=== PATIENT | female | born 1980 | race African-American/Black ===

== ENCOUNTER → 2019-03-28 | Outpatient (CLI) | payer SELFPAY ==
[~2019-03-28] MED LIST: FAMO20TA5 PO; ONDA-42 SL; ONDA8TAB9 PO
--- NOTE | 2019-03-28 14:00 | Diagnostic Imaging Report ---
INDICATION: Left wrist pain. FINDINGS: Three views of the left wrist show no fracture, dislocation or other acute abnormalities. IMPRESSION: Negative left wrist. Dictated by: Dictated on workstation # [id number]
== END ==
LOC: RAD FS 13:35
PROVIDERS: ATTEND Nurse Practitioner Family
DX: S69.92XA Unspecified injury of left wrist, hand and finger(s), initial encounter (principal)
CPT/HCPCS: 73110

== ENCOUNTER 2020-06-26 07:40 | Emergency (ER) | payer SELFPAY ==
[~2020-06-26] VITALS: Ht 167.7 cm; Wt 128.2 kg
[2020-06-26] MEDS ORDERED: NS IV 1000 ML 1,000 ML IV STA (08:05)
[2020-06-26] MEDS ORDERED: KETOROLAC 15 MG/ML VIAL ONE (08:10)
--- NOTE | 2020-06-26 08:11 | ED Abdominal Pain ---
General Chief Complaint: Abdominal/GI Problems Stated Complaint: ABD PAIN; RT FLANK PAIN; NAUSEA Source of Information: Patient, RN/MD Exam Limitations: No Limitations History of Present Illness Date Seen by Provider: Jun 26, 2020 Time Seen by Provider: 07:58 Initial Comments This patient is a 40-year-old female presents to the emergency department with complaint of right upper quadrant abdominal pain radiating to the back. Patient states it awakened her from sleep. Patient denies a history of the same. Patient is not related to food. Patient states she is passing gas this morning. Patient denies nausea. Denies cough or chest pain. We'll do medical evaluation treatment is needed Timing/Duration: 1 Hour Severity/Quality: Moderate Location: RUQ, Epigastric Radiation: Back, Flank Activities at Onset: None, Rest Modifying Factors: Worsens With Analgesics, Worsens With Antacids, Worsens With Breathing, Worsens With Coughing, Worsens With Defecating, Worsens With Eating, Worsens With Exercise, Worsens With Lying down, Worsens With Movement, Worsens With Palpation, Worsens With Resting, Worsens With Urinating, Worsens With Vomiting, Worsens With Other Allergies and Home Medications Allergies Coded Allergies: latex (Unverified Allergy, Unknown, 03/24/15) Uncoded Allergies: RASIN (Allergy, Unknown, 09/27/15) Home Medications No Active Prescriptions or Reported Meds Patient Home Medication List Home Medication List Reviewed: Yes Review of Systems Review of Systems Constitutional: No no symptoms reported, No see HPI, No chills, No diaphoresis, No dizziness, No fever, No malaise, No weakness, No weight gain, No weight loss, No other EENTM: No No Symptoms Reported, No See HPI, No Blurred Vision, No Double Vision, No Eye Pain, No Eye Tearing, No Ear Drainage, No Ear Pain, No Mouth Pain, No Mouth Swelling, No Nose Congestion, No Nose Pain, No Throat Pain, No Throat Swelling, No Other Respiratory: Denies No Symptoms Reported, Denies See HPI, Denies Cough, Denies Orthopnea, Denies Shortness of Air, Denies SOA With Exertion, Denies SOA at Rest, Denies Stridor, Denies Wheezing, Denies Other Cardiovascular: Denies No Symptoms Reported, Denies See HPI, Denies Chest Pain, Denies Edema, Denies Irregular Heart Rate, Denies Lightheadedness, Denies Palpitations, Denies Syncope, Denies Other Gastrointestinal: No Symptoms Reported; Denies See HPI, Denies Abdomen Distended; Abdominal Pain; Denies Blood Streaked Stools, Denies Constipated, Denies Diarrhea, Denies Difficulty Swallowing, Denies Nausea, Denies Poor Appetite, Denies Poor Fluid Intake, Denies Rectal Bleeding, Denies Vomiting, Denies Other Genitourinary: Denies No Symptoms Reported, Denies See HPI, Denies Burning, Denies Discharge, Denies Drainage, Denies Frequency, Denies Flank Pain, Denies Hematuria, Denies Incontinence, Denies Pain, Denies Urgency, Denies Other Musculoskeletal: No no symptoms reported, No see HPI, No back pain, No gout, No joint pain, No joint swelling, No muscle pain, No muscle stiffness, No muscle cramps, No muscle twitching, No muscle weakness, No neck pain, No other Skin: No no symptoms reported, No see HPI, No change in color, No change in hair/nails, No dryness, No hx of skin cancer, No lesions, No lumps, No pruritus, No rash, No other All Other Systems Reviewed Negative Unless Noted: Yes Past Vbmsreg-Vkblgf-Vnilmx Hx Patient Social History Type Used: Cigarettes Former Smoker, Quit: Jun 19, 2014 Recent Foreign Travel: No Contact w/Someone Who Travel: No Recent Hopitalizations: No Immunizations Up To Date Tetanus Booster (TDap): Unknown Past Medical History Asthma Reproductive Disorders: No Sexually Transmitted Disease: No HIV/AIDS: No Adverse Reaction/Blood Tranf: No Physical Exam Vital Signs Vital Signs - First Documented 06/26/20 07:44 Temp 35.8 Pulse 92 Resp 18 B/P (MAP) 145/94 (111) Pulse Ox 98 O2 Delivery Room Air Capillary Refill : Height/Weight/BMI Height: 5'5" Weight: 245lbs. oz. 111.990078ey; BMI Method: General Appearance: WD/WN, no apparent distress Respiratory: chest non-tender, lungs clear, normal breath sounds, no respiratory distress, no accessory muscle use Cardiovascular: normal peripheral pulses, regular rate, rhythm, no edema, no gallop, no JVD, no murmur Gastrointestinal: normal bowel sounds, soft, no organomegaly, no pulsatile mass, guarding, tenderness Extremities: normal range of motion, non-tender, normal inspection, no pedal edema, no calf tenderness, normal capillary refill, pelvis stable Back: normal inspection, no CVA tenderness, no vertebral tenderness Skin: normal color, warm/dry Progress/Results/Core Measures Results/Orders Lab Results Laboratory Tests Test 06/26/20 07:44 06/26/20 07:59 Range/Units Urine Color YELLOW Urine Clarity CLEAR Urine pH 6.0 5-9 Urine Specific [place] 1.025 H 1.016-1.022 Urine Protein NEGATIVE NEGATIVE Urine Glucose (UA) NEGATIVE NEGATIVE Urine Ketones NEGATIVE NEGATIVE Urine Nitrite NEGATIVE NEGATIVE Urine Bilirubin NEGATIVE NEGATIVE Urine Urobilinogen 0.2 < = 1.0 MG/DL Urine Leukocyte Esterase TRACE H NEGATIVE Urine RBC (Auto) TRACE H NEGATIVE Urine RBC 2-5 H /HPF Urine WBC 0-2 /HPF Urine Squamous Epithelial Cells 5-10 /HPF Urine Crystals NONE /LPF Urine Bacteria NEGATIVE /HPF Urine Casts NONE /LPF Urine Mucus NEGATIVE /LPF Urine Culture Indicated NO White Blood Count 6.8 4.3-11.0 10^3/uL Red Blood Count 4.72 4.35-5.85 10^6/uL Hemoglobin 11.3 L 11.5-16.0 G/DL Hematocrit 36 35-52 % Mean Corpuscular Volume 75 L 80-99 FL Mean Corpuscular Hemoglobin 24 L 25-34 PG Mean Corpuscular Hemoglobin Concent 32 32-36 G/DL Red Cell Distribution Width 15.4 H 10.0-14.5 % Platelet Count 350 130-400 10^3/uL Mean Platelet Volume 10.0 7.4-10.4 FL Neutrophils (%) (Auto) 57 42-75 % Lymphocytes (%) (Auto) 26 12-44 % Monocytes (%) (Auto) 7 0-12 % Eosinophils (%) (Auto) 9 0-10 % Basophils (%) (Auto) 1 0-10 % Neutrophils # (Auto) 3.9 1.8-7.8 X 10^3 Lymphocytes # (Auto) 1.8 1.0-4.0 X 10^3 Monocytes # (Auto) 0.5 0.0-1.0 X 10^3 Eosinophils # (Auto) 0.6 H 0.0-0.3 10^3/uL Basophils # (Auto) 0.1 0.0-0.1 10^3/uL Sodium Level 138 135-145 MMOL/L Potassium Level 4.1 3.6-5.0 MMOL/L Chloride Level 104 98-107 MMOL/L Carbon Dioxide Level 25 21-32 MMOL/L Anion Gap 9 5-14 MMOL/L Blood Urea Nitrogen 13 7-18 MG/DL Creatinine 0.84 0.60-1.30 MG/DL Estimat Glomerular Filtration Rate > 60 BUN/Creatinine Ratio 15 Glucose Level 109 H 70-105 MG/DL Calcium Level 9.2 8.5-10.1 MG/DL Corrected Calcium 9.2 8.5-10.1 MG/DL Total Bilirubin 0.2 0.1-1.0 MG/DL Aspartate Amino Transf (AST/SGOT) 16 5-34 U/L Alanine Aminotransferase (ALT/SGPT) 18 0-55 U/L Alkaline Phosphatase 89 40-136 U/L Total Protein 7.1 6.4-8.2 GM/DL Albumin 4.0 3.2-4.5 GM/DL Lipase 35 8-78 U/L My Orders Orders - ANGIE GALEANA MD Cbc With Automated Diff (06/26/20 08:03) Comprehensive Metabolic Panel (06/26/20 08:03) Urine Bedside (06/26/20 08:04) Ns Iv 1000 Ml (Sodium Chloride 0.9%) (06/26/20 08:05) Ondansetron Injection (Zofran Injectio (06/26/20 08:15) Urinalysis (06/26/20 08:05) Lipase (06/26/20 08:05) Acute Abd Series (06/26/20 08:05) Ketorolac Injection (Toradol Injection) (06/26/20 08:10) Ketorolac Injection (Toradol Injection) (06/26/20 08:15) Medications Given in ED Current Medications Medications Dose Ordered Sig/Abel Route Start Time Stop Time Status Last Admin Dose Admin Ketorolac Tromethamine 15 mg ONCE ONCE IVP 06/26/20 08:15 06/26/20 08:17 DC 06/26/20 08:18 15 MG Ondansetron HCl 4 mg ONCE ONCE IVP 06/26/20 08:15 06/26/20 08:16 DC 06/26/20 08:14 4 MG Vital Signs/I&O 06/26/20 07:44 Temp 35.8 Pulse 92 Resp 18 B/P (MAP) 145/94 (111) Pulse Ox 98 O2 Delivery Room Air Progress Progress Note : Time: 08:53 Progress Note Negative for acute findings. Patient's pain is relieved. Laboratory findings are normal. Patient states she had a little soft stool this morning. X-ray showed the patient be possibly constipated. We did discuss at length with patient possible gallbladder issues. Patient understands we do not have ultrasound available. Patient understands that she will need follow-up primary care physician and possibly have an ultrasound outpatient. Patient should take note of recurrent pain in the right upper quadrant related to food. Patient is to return to the emergency department if symptoms felt improved worsen. Patient be given a prescription for Bentyl for abdominal pain. Departure Impression Primary Impression: Right upper quadrant abdominal pain Additional Impression: Constipation Disposition: 01 HOME, SELF-CARE Condition: Stable Departure-Patient Inst. Decision time for Depature: 08:54 Referrals: THADDEUS SWANN MD Patient Instructions: Constipation, Adult (DC), Severe Abdominal Pain, Adult (DC) Add. Discharge Instructions: Patient understands that she will need follow-up primary care physician and possibly have an ultrasound outpatient. Patient should take note of recurrent pain in the right upper quadrant related to food. Patient is to return to the emergency department if symptoms felt improved worsen. Patient be given a prescription for Bentyl for abdominal pain. All discharge instructions reviewed with patient and/or family. Voiced understanding. Scripts Diclofenac Sodium (Diclofenac Sodium) 75 Mg Tablet. 75 MG PO BID for 10 Days, #20 TAB 0 Refills Prov: ANGIE GALEANA MD 06/26/20 Dicyclomine HCl (Dicyclomine HCl) 20 Mg Tablet 20 MG PO TID, #20 TAB 0 Refills Prov: ANGIE GALEANA MD 06/26/20 ANGIE GALEANA MD Jun 26, 2020 08:11
[2020-06-26] MEDS ORDERED: ONDANSETRON 4 MG/2 ML (SDV) Z0FRAN IVP ONE (08:15)
[2020-06-26] MEDS ORDERED: KETOROLAC 15 MG/ML VIAL IVP ONE (08:15)
[2020-06-26] MEDS ORDERED: KETOROLAC 60 MG/2 ML VIAL IV ONE (08:15)
[2020-06-26 08:32] LABS: BACTERIA,URINE NEGATIVE /HPF; BILIRUBIN,URINE NEGATIVE (NEGATIVE); CLARITY,URINE CLEAR; COLOR,URINE YELLOW; GLUCOSE, URINE (UA) NEGATIVE (NEGATIVE); KETONES,URINE NEGATIVE (NEGATIVE); LEUKOCYTE ESTERASE ,URINE TRACE (NEGATIVE); NITRITE,URINE NEGATIVE (NEGATIVE); PROTEIN,URINE NEGATIVE (NEGATIVE); WBC,URINE 0-2 /HPF
[2020-06-26 08:33] LABS: BASOPHILS % (AUTO) 1 % (0-10); EOSINOPHILS % (AUTO) 9 % (0-10); HEMATOCRIT 36 % (35-52); HEMOGLOBIN 11.3 G/DL (11.5-16.0); MEAN CORPUSCULAR HEMOGLOBIN 24 PG (25-34); MEAN CORPUSCULAR HGB CONC 32 G/DL (32-36); MEAN CORPUSCULAR VOLUME 75 FL (80-99); MONOCYTES % (AUTO) 7 % (0-12); NEUTROPHILS % (AUTO) 57 % (42-75); PLATELET COUNT 350 10^3/uL (130-400); RED CELL DISTRIBUTION WIDTH 15.4 % (10.0-14.5); WHITE BLOOD COUNT 6.8 10^3/uL (4.3-11.0)
[2020-06-26 08:34] LABS: BASOPHILS # (AUTO) 0.1 10^3/uL (0.0-0.1); EOSINOPHILS # (AUTO) 0.6 10^3/uL (0.0-0.3); LYMPHOCYTES # (AUTO) 1.8 X 10^3 (1.0-4.0); LYMPHOCYTES % (AUTO) 26 % (12-44); MONOCYTES # (AUTO) 0.5 X 10^3 (0.0-1.0); NEUTROPHILS # (AUTO) 3.9 X 10^3 (1.8-7.8)
[2020-06-26 08:42] LABS: SODIUM 138 MMOL/L (135-145)
[2020-06-26 08:43] LABS: ALANINE AMINOTRANSFERASE 18 U/L (0-55); ALKALINE PHOSPHATASE 89 U/L (40-136); BILIRUBIN,TOTAL 0.2 MG/DL (0.1-1.0); BUN/CREATININE RATIO 15; CALCIUM 9.2 MG/DL (8.5-10.1); CARBON DIOXIDE 25 MMOL/L (21-32); CHLORIDE 104 MMOL/L (98-107); CREATININE SERUM 0.84 MG/DL (0.60-1.30); GFR ESTIMATED > 60; GLUCOSE 109 MG/DL (70-105); LIPASE 35 U/L (8-78); POTASSIUM 4.1 MMOL/L (3.6-5.0); TOTAL PROTEIN 7.1 GM/DL (6.4-8.2)
[2020-06-26] MEDS ORDERED: DICY20TA10 PO (08:56)
[2020-06-26] MEDS ORDERED: DICL75TA2 PO (08:56)
[2020-06-26 09:04] VITALS: BP 123/87
--- NOTE | 2020-06-26 09:38 | Diagnostic Imaging Report ---
INDICATION: Upper abdominal pain with radiation to the back COMPARISON: None FINDINGS: Supine and upright views of the abdomen show a nondistended bowel gas pattern. No abnormal air fluid levels or free intraperitoneal air is seen. No abnormal extraosseous calcifications are seen. Bony and soft tissue structures are within normal limits. No organomegaly is identified. Accompanying upright chest shows normal heart size and pulmonary vascularity. The lungs are well aerated and clear. The mediastinum is normal in appearance. IMPRESSION: 1. No bowel obstruction or free air. 2. Normal chest. No pneumonia or pulmonary edema. Dictated by: Dictated on workstation # [id number]
== END 2020-06-26 09:04 | disposition home or self-care (01) ==
LOC: EDUNIT# 07:40 → ER FS 07:42
DX: K59.00 Constipation, unspecified (principal); Z91.040 Latex allergy status; Z88.8 Allergy status to other drugs, medicaments and biological substances; Z87.891 Personal history of nicotine dependence
CPT/HCPCS: 36415; 74022; 80053; 81000; 83690; 84703; 85025

== ENCOUNTER 2020-10-08 14:54 | Emergency (ER) | payer SELFPAY ==
[~2020-10-08 14:54] MED LIST changes: +DICL75TA2 PO; +DICY20TA10 PO
== END 2020-10-08 16:00 | disposition left against medical advice (07) ==
LOC: EDUNIT# 14:54 → ER 14:55
DX: N93.9 Abnormal uterine and vaginal bleeding, unspecified (principal)

== ENCOUNTER 2021-12-07 10:57 | Observation (INO) | payer MEDICAID, OTHER ==
[~2021-12-07] VITALS: Ht 165.1 cm; Wt 127.0 kg
[~2021-12-07 10:57] MED LIST changes: +DICY20TA PO; -DICY20TA10 PO
[2021-12-07 11:35] LABS: BILIRUBIN,URINE NEGATIVE (NEGATIVE); CLARITY,URINE TURBID; COLOR,URINE YELLOW; GLUCOSE, URINE (UA) NEGATIVE (NEGATIVE); KETONES,URINE NEGATIVE (NEGATIVE); LEUKOCYTE ESTERASE ,URINE 1+ (NEGATIVE); NITRITE,URINE NEGATIVE (NEGATIVE); PROTEIN,URINE NEGATIVE (NEGATIVE)
--- NOTE | 2021-12-07 11:40 | ED Abdominal Pain ---
General Chief Complaint: Abdominal/GI Problems Stated Complaint: SOB,N/V,COUGH,UMBILICAL PAIN Source of Information: Patient Exam Limitations: No Limitations History of Present Illness Date Seen by Provider: Dec 07, 2021 Time Seen by Provider: 11:27 Initial Comments This is a well-appearing 41-year-old female who presented to the ER with complaints of mid umbilical and right upper quadrant abdominal pain that started this morning. States that she has a history of this pain and was told in the past that it was in relation to her gallbladder. Notes that she had a vaginal delivery 1 month ago. She is G8, P7. Took one of her home oxycodone's and states that her pain is much improved. Also states that everyone in her house is currently COVID-positive and would like evaluated for COVID as well. Denies fever, chills, cough, shortness of breath, vomiting. Does have intermittent nausea with no emesis. Allergies and Home Medications Allergies Coded Allergies: latex (Unverified Allergy, Unknown, 03/24/15) Uncoded Allergies: RASIN (Allergy, Unknown, 09/27/15) Patient Home Medication List Home Medication List Reviewed: Yes Diclofenac Sodium (Diclofenac Sodium) 75 Mg Tablet.dr, 75 MG PO BID Prescribed by: ANGIE GALEANA on 06/26/20855 Dicyclomine HCl (Dicyclomine HCl) 20 Mg Tablet, 20 MG PO TID Prescribed by: ANGIE GALEANA on 06/26/2056 Review of Systems Review of Systems Constitutional: no symptoms reported EENTM: No Symptoms Reported Respiratory: No Symptoms Reported Cardiovascular: No Symptoms Reported Gastrointestinal: See HPI Genitourinary: No Symptoms Reported Musculoskeletal: no symptoms reported Skin: no symptoms reported Psychiatric/Neurological: No Symptoms Reported Endocrine: No Symptoms Reported Hematologic/Lymphatic: No Symptoms Reported Past Dtfwyat-Ubawrx-Acwiuy Hx Patient Social History Tobacco Use?: No Substance use?: No Alcohol Use?: No Pt feels they are or have been: No Immunizations Up To Date Tetanus Booster (TDap): Unknown Influenza Vaccine Up-to-Date: No; Not Current Seasonal Allergies Seasonal Allergies: No Past Medical History Surgery/Hospitalization HX: asthma Surgeries: No Respiratory: Yes Asthma Cardiac: No Neurological: Yes (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 oz. 111.942804fq; 45.00 BMI Method: General Appearance: WD/WN, no apparent distress HEENT: PERRL/EOMI, normal ENT inspection, pharynx normal Neck: full range of motion, normal inspection Respiratory: lungs clear, normal breath sounds, no respiratory distress, no accessory muscle use Cardiovascular: regular rate, rhythm, no edema, no gallop, no murmur Gastrointestinal: normal bowel sounds, soft, no pulsatile mass, rebound, other (+Mejia ) Extremities: normal range of motion, non-tender, normal inspection Back: normal inspection, no CVA tenderness Neurologic/Psychiatric: no motor/sensory deficits, alert, normal mood/affect, oriented x 3 Skin: normal color, warm/dry Progress/Results/Core Measures Results/Orders Lab Results Laboratory Tests Test 12/07/21 11:17 12/07/21 11:32 12/07/21 11:35 Range/Units Urine Color YELLOW Urine Clarity TURBID Urine pH 6.0 5-9 Urine Specific [place] 1.020 1.016-1.022 Urine Protein NEGATIVE NEGATIVE Urine Glucose (UA) NEGATIVE NEGATIVE Urine Ketones NEGATIVE NEGATIVE Urine Nitrite NEGATIVE NEGATIVE Urine Bilirubin NEGATIVE NEGATIVE Urine Urobilinogen 0.2 < = 1.0 MG/DL Urine Leukocyte Esterase 1+ H NEGATIVE Urine RBC (Auto) NEGATIVE NEGATIVE Urine RBC NONE /HPF Urine WBC 5-10 H /HPF Urine Squamous Epithelial Cells 25-50 H /HPF Urine Crystals NONE /LPF Urine Bacteria TRACE /HPF Urine Casts NONE /LPF Urine Mucus NEGATIVE /LPF Urine Culture Indicated YES White Blood Count 8.5 4.3-11.0 10^3/uL Red Blood Count 5.15 H 3.80-5.11 10^6/uL Hemoglobin 12.0 11.5-16.0 g/dL Hematocrit 39 35-52 % Mean Corpuscular Volume 76 L 80-99 fL Mean Corpuscular Hemoglobin 23 L 25-34 pg Mean Corpuscular Hemoglobin Concent 31 L 32-36 g/dL Red Cell Distribution Width 18.6 H 10.0-14.5 % Platelet Count 288 130-400 10^3/uL Mean Platelet Volume 9.9 9.0-12.2 fL Immature Granulocyte % (Auto) 0 % Neutrophils (%) (Auto) 76 H 42-75 % Lymphocytes (%) (Auto) 13 12-44 % Monocytes (%) (Auto) 7 0-12 % Eosinophils (%) (Auto) 3 0-10 % Basophils (%) (Auto) 1 0-10 % Neutrophils # (Auto) 6.5 1.8-7.8 10^3/uL Lymphocytes # (Auto) 1.1 1.0-4.0 10^3/uL Monocytes # (Auto) 0.6 0.0-1.0 10^3/uL Eosinophils # (Auto) 0.3 0.0-0.3 10^3/uL Basophils # (Auto) 0.0 0.0-0.1 10^3/uL Immature Granulocyte # (Auto) 0.0 0.0-0.1 10^3/uL Sodium Level 139 135-145 MMOL/L Potassium Level 4.3 3.6-5.0 MMOL/L Chloride Level 107 98-107 MMOL/L Carbon Dioxide Level 22 21-32 MMOL/L Anion Gap 10 5-14 MMOL/L Blood Urea Nitrogen 10 7-18 MG/DL Creatinine 0.74 0.60-1.30 MG/DL Estimat Glomerular Filtration Rate 105 BUN/Creatinine Ratio 14 Glucose Level 109 H 70-105 MG/DL Calcium Level 8.6 8.5-10.1 MG/DL Corrected Calcium 8.8 8.5-10.1 MG/DL Total Bilirubin 0.3 0.1-1.0 MG/DL Aspartate Amino Transf (AST/SGOT) 23 5-34 U/L Alanine Aminotransferase (ALT/SGPT) 39 0-55 U/L Alkaline Phosphatase 112 40-136 U/L Total Protein 7.0 6.4-8.2 GM/DL Albumin 3.8 3.2-4.5 GM/DL Influenza Type A (RT-PCR) Not Detected Not Detecte Influenza Type B (RT-PCR) Not Detected Not Detecte SARS-CoV-2 RNA (RT-PCR) Detected H Not Detecte My Orders Orders - MILLY FU CEO NA Ua Culture If Indicated (12/07/21 11:12) Urine Bedside (12/07/21 11:12) Cbc With Automated Diff (12/07/21 11:37) Comprehensive Metabolic Panel (12/07/21 11:37) Ct Abdomen/Pelvis W (12/07/21 11:37) Covid 19 Inhouse Test (12/07/21 11:37) Influenza A And B By Pcr (12/07/21 11:37) Iohexol Injection (Omnipaque 350 Mg/Ml 1 (12/07/21 11:45) Received Contrast (Hold Metformin- Contr (12/07/21 11:45) Ns (Ivpb) (Sodium Chloride 0.9% Ivpb Bag (12/07/21 11:45) Urine Culture (12/07/21 11:17) Medications Given in ED Current Medications Medications Dose Ordered Sig/Abel Route Start Time Stop Time Status Last Admin Dose Admin Iohexol 100 ml ONCE ONCE IV 12/07/21 11:45 12/07/21 11:46 DC 12/07/21 13:08 100 ML Sodium Chloride 100 ml ONCE ONCE IV 12/07/21 11:45 12/07/21 11:46 DC 12/07/21 13:08 80 ML Vital Signs/I&O 12/07/21 11:11 Temp 36.1 Pulse 87 Resp 20 B/P (MAP) 137/91 (106) Pulse Ox 97 O2 Delivery Room Air Diagnostic Imaging Diagonstic Imaging: CT Plain Films/CT/US/NM/MRI: abdomen Comments [facility], [place] NAME: TASHI BROWN [facility] REC#: [id number] PT STATUS: REG ER : 1980 PHYSICIAN: MILLY FU CEO NA ADMIT DATE: 12/07/21/ER Signed Date of Exam:12/07/21 CT ABDOMEN/PELVIS W PROCEDURE: CT abdomen and pelvis with contrast. TECHNIQUE: Multiple contiguous axial images were obtained through the abdomen and pelvis after administration of intravenous contrast. Auto Exposure Controls were utilized during the CT exam to meet ALARA standards for radiation dose reduction. All CT scans use one or more of the following dose optimizing techniques: Automated exposure control, MA and/or KvP adjustment based on patient size and exam type or iterative reconstruction. INDICATION: Abdominal pain with nausea and emesis. COMPARISON: 09/27/2015. FINDINGS: There is mild low density throughout the liver. Gallbladder is distended with an approximately 1.8 cm calculus in the gallbladder neck. No gallbladder wall thickening or pericholecystic inflammation is identified. No pancreatic, adrenal gland, or splenic lesion is seen. Kidneys are unremarkable in appearance. There is no free fluid in the abdomen or pelvis. The appendix demonstrates mild enlargement with surrounding edema and inflammation. No organized fluid collection is seen to indicate abscess. There is a trace amount of pelvic free fluid. Unopacified bladder is unremarkable. IMPRESSION: Findings are compatible with acute appendicitis without periappendiceal abscess or pneumoperitoneum. Note is also made of cholecystolithiasis without secondary sign of acute cholecystitis or biliary tract obstruction. Dictated by: Dictated on workstation # [id number] Dict: 12/07/21 1313 Trans: 12/07/21 1347 [id number] Interpreted by: DEMARIO ANDERSON MD Electronically signed by: DEMARIO ANDERSON MD 12/07/21 1347 Reviewed: Reviewed by Me Departure Communication (Admissions) Time/Spoke to Admitting Phy: 13:[address] Guzman, will admit. Discussed plan of care with patient and she is agreeable with plan at this time. Impression Primary Impression: Acute appendicitis Additional Impression: COVID-19 Disposition: 09 ADMITTED INPATIENT Condition: Improved Admissions Decision to Admit Reason: Admit from ER (General) Decision to Admit/Date: Dec 07, 2021 Time/Decision to Admit Time: 13:29 Departure-Patient Inst. Referrals: NO,LOCAL PHYSICIAN (PCP/Family) Primary Care Physician MILLY FU CEO NA Dec 07, 2021 11:40
[2021-12-07 11:45] LABS: BACTERIA,URINE TRACE /HPF; SQUAMOUS EPITHELIAL CELL,UR 25-50 /HPF
[2021-12-07] MEDS ORDERED: HOLD METFORMIN - RECEIVED CONTRAST 20 ML VIAL IV SCH (11:45)
[2021-12-07] MEDS ORDERED: IOHEXOL 350 MG/ML 100 ML (OMNIPAQUE 350) VIAL IV ONE (11:45)
[2021-12-07] MEDS ORDERED: NS 100 ML (IVPB) BAG IV ONE (11:45)
[2021-12-07 11:47] LABS: BASOPHILS % (AUTO) 1 % (0-10); EOSINOPHILS # (AUTO) 0.3 10^3/uL (0.0-0.3); EOSINOPHILS % (AUTO) 3 % (0-10); HEMATOCRIT 39 % (35-52); LYMPHOCYTES # (AUTO) 1.1 10^3/uL (1.0-4.0); LYMPHOCYTES % (AUTO) 13 % (12-44); MEAN CORPUSCULAR HEMOGLOBIN 23 pg (25-34); MEAN CORPUSCULAR HGB CONC 31 g/dL (32-36); MEAN CORPUSCULAR VOLUME 76 fL (80-99); MEAN PLATELET VOLUME 9.9 fL (9.0-12.2); MONOCYTES # (AUTO) 0.6 10^3/uL (0.0-1.0); MONOCYTES % (AUTO) 7 % (0-12); NEUTROPHILS # (AUTO) 6.5 10^3/uL (1.8-7.8); NEUTROPHILS % (AUTO) 76 % (42-75); PLATELET COUNT 288 10^3/uL (130-400); WHITE BLOOD COUNT 8.5 10^3/uL (4.3-11.0)
[2021-12-07 11:48] LABS: ALBUMIN 3.8 GM/DL (3.2-4.5); POTASSIUM 4.3 MMOL/L (3.6-5.0)
[2021-12-07 11:49] LABS: CALCIUM 8.6 MG/DL (8.5-10.1)
[2021-12-07 11:52] LABS: BILIRUBIN,TOTAL 0.3 MG/DL (0.1-1.0)
[2021-12-07 11:54] LABS: CREATININE SERUM 0.74 MG/DL (0.60-1.30)
--- NOTE | 2021-12-07 13:23 | Diagnostic Imaging Report ---
PROCEDURE: CT abdomen and pelvis with contrast. TECHNIQUE: Multiple contiguous axial images were obtained through the abdomen and pelvis after administration of intravenous contrast. Auto Exposure Controls were utilized during the CT exam to meet ALARA standards for radiation dose reduction. All CT scans use one or more of the following dose optimizing techniques: Automated exposure control, MA and/or KvP adjustment based on patient size and exam type or iterative reconstruction. INDICATION: Abdominal pain with nausea and emesis. COMPARISON: 09/27/2015. FINDINGS: There is mild low density throughout the liver. Gallbladder is distended with an approximately 1.8 cm calculus in the gallbladder neck. No gallbladder wall thickening or pericholecystic inflammation is identified. No pancreatic, adrenal gland, or splenic lesion is seen. Kidneys are unremarkable in appearance. There is no free fluid in the abdomen or pelvis. The appendix demonstrates mild enlargement with surrounding edema and inflammation. No organized fluid collection is seen to indicate abscess. There is a trace amount of pelvic free fluid. Unopacified bladder is unremarkable. IMPRESSION: Findings are compatible with acute appendicitis without periappendiceal abscess or pneumoperitoneum. Note is also made of cholecystolithiasis without secondary sign of acute cholecystitis or biliary tract obstruction. Dictated by: Dictated on workstation # [id number]
[2021-12-07 14:45] VITALS: BP 137/71
[2021-12-07] MEDS ORDERED: PROCHLORPERAZINE 10 MG/2ML INJ (COMPAZINE) IV PRN (15:00)
[2021-12-07] MEDS ORDERED: ONDANSETRON 4 MG/2 ML (SDV) Z0FRAN IV PRN (15:00)
[2021-12-07] MEDS ORDERED: fentaNYL INJ 100 MCG/2 ML AMP IV PRN (15:00)
[2021-12-07] MEDS: oxyCODONE/APAP 5/325MG (PERCOCET 5) TABLET PO PRN (15:26)
[2021-12-07] MEDS: LACTATED RINGERS 1,000 ML IV SCH (15:27)
[2021-12-07 15:31] VITALS: BP 134/90
[2021-12-07] MEDS: CIPROFLOXACIN 400 MG/D5W 200 ML (PRE-MIX) IV SCH (15:31)
[2021-12-07] MEDS ORDERED: RT-ALBUTEROL HFA 8.5 GM INHALER IH PRN (15:45)
--- NOTE | 2021-12-07 16:11 | HISTORY AND PHYSICAL ---
DATE OF SERVICE: HISTORY OF PRESENT ILLNESS: The patient is a 41-year-old female, who is a G8, P7, who recently underwent vaginal delivery approximately one month ago. She presented to the Emergency Department with mid umbilical pain; however, this did start to radiate towards the right lower abdominal quadrant this morning. She also states that she has had some intermittent episodes of pain in the right upper abdominal quadrant as well. She does not report any nausea nor vomiting. She also does not report any fever, no chills. A CT scan was performed, which did show gallstones; however, no gallbladder wall thickening. There was also dilatation of the appendix with no periappendiceal phlegmon, inflammation or abscess consistent with an uncomplicated appendicitis. She also stated that people in her house were positive for Covid and she underwent a test upon presentation, and was found to be positive as well. PAST MEDICAL HISTORY: Seizure disorder as a child, migraine headaches, and asthma. PAST SURGICAL HISTORY: None known. ALLERGIES: LATEX. MEDICATIONS: Diclofenac 75 mg b.i.d., dicyclomine 20 mg t.i.d., and hydrocodone p.r.n. SOCIAL HISTORY: Negative smoke and negative alcohol. FAMILY HISTORY: Noncontributory. REVIEW OF SYSTEMS: A well-nourished female, currently in no acute distress. She is not experiencing any shortness of breath or difficulty in breathing. No chest pain, palpitations, diaphoresis. Pain in the right lower abdominal quadrant, which has been persistent over the past several hours; however, she also has intermittent pain in the right upper abdominal quadrant. No nausea or vomiting, no fever or chills, and no recent inadvertent weight loss. All other review of systems negative. PHYSICAL EXAMINATION: VITAL SIGNS: Temperature is 36.1, blood pressure 137/91, pulse 87, respirations 20, and pulse ox 97% on room air. CHEST: Clear. Good breath sounds bilaterally. HEART: Regular and no murmurs. EXTREMITIES: No lower extremity edema and negative Homans sign. HEENT: No scleral icterus. NECK: No cervical lymphadenopathy. ABDOMEN: Soft and nondistended. There is pain in the right upper abdominal quadrant; however, there are no peritoneal signs. There are no hernias. SKIN: Warm and dry. LABORATORY DATA: WBC 8.5, hemoglobin 12.0, hematocrit 39, platelets 288, BUN 10, and creatinine 0.74. Liver function enzymes are normal. Urinalysis positive for leukocyte esterase and trace bacteria. ASSESSMENT AND PLAN: A 41-year-old female with uncomplicated acute appendicitis as well as intermittent symptomatic chronic cholecystitis. She was found to be COVID positive and due to this, there are increased risks involving general endotracheal intubation as well as surgery. The management for noncomplicated appendicitis has changed dramatically in the past several years and may be treated medically with IV antibiotics and bowel rest. That is what we will recommend for her and continue with IV antibiotics, pain control, start clear liquid diet. When she becomes less symptomatic with less pain, we will advance her diet. We will also send her home with oral antibiotics as well. Once she is feeling better and over her covid recommendations, we will then give her the opportunity to proceed with an interval laparoscopic appendectomy as well as a laparoscopic cholecystectomy if she wishes to do so. Job ID: [id number] DocumentID: [id number] Dictated Date: 12/07/2021 15:56:11 Sander Portable Machine Date: 12/07/2021 16:10:05 Dictated By: JOSE CARLOS ESTES MD MTDD
[2021-12-07 20:14] VITALS: BP 142/83
[2021-12-08 00:05] VITALS: BP 137/76
[2021-12-08] MEDS: oxyCODONE/APAP 5/325MG (PERCOCET 5) TABLET PO PRN (00:24)
[2021-12-08] MEDS: CIPROFLOXACIN 400 MG/D5W 200 ML (PRE-MIX) IV SCH (01:57)
[2021-12-08] MEDS: LACTATED RINGERS 1,000 ML IV SCH ×2 (01:57→11:26)
[2021-12-08 03:55] VITALS: BP 157/72
[2021-12-08 06:43] LABS: BASOPHILS % (AUTO) 1 % (0-10); EOSINOPHILS # (AUTO) 0.3 10^3/uL (0.0-0.3); EOSINOPHILS % (AUTO) 6 % (0-10); HEMATOCRIT 37 % (35-52); HEMOGLOBIN 11.4 g/dL (11.5-16.0); LYMPHOCYTES # (AUTO) 1.3 10^3/uL (1.0-4.0); LYMPHOCYTES % (AUTO) 25 % (12-44); MEAN CORPUSCULAR HEMOGLOBIN 23 pg (25-34); MEAN CORPUSCULAR HGB CONC 31 g/dL (32-36); MEAN CORPUSCULAR VOLUME 75 fL (80-99); MEAN PLATELET VOLUME 10.4 fL (9.0-12.2); MONOCYTES # (AUTO) 0.4 10^3/uL (0.0-1.0); MONOCYTES % (AUTO) 8 % (0-12); NEUTROPHILS # (AUTO) 3.1 10^3/uL (1.8-7.8); NEUTROPHILS % (AUTO) 60 % (42-75); PLATELET COUNT 271 10^3/uL (130-400); WHITE BLOOD COUNT 5.2 10^3/uL (4.3-11.0)
[2021-12-08 06:56] LABS: POTASSIUM 3.7 MMOL/L (3.6-5.0)
[2021-12-08 06:57] LABS: CALCIUM 8.4 MG/DL (8.5-10.1)
[2021-12-08 07:01] LABS: CREATININE SERUM 0.68 MG/DL (0.60-1.30)
[2021-12-08 08:00] VITALS: BP 156/83
--- NOTE | 2021-12-08 09:08 | Progress Note ---
Subjective Date Seen by a Provider: Dec 08, 2021 Time Seen by a Provider: 08:40 Subjective/Events-last exam Patient seen with Dr. Guzman. Patient reports doing ok. Does reports some SOB and RLQ abdominal pain. Denies any other issues. Objective Exam Vital Signs Date Time Temp Pulse Resp B/P (MAP) Pulse Ox O2 Delivery O2 Flow Rate FiO2 12/08/21 08:00 35.9 73 20 156/83 (107) 96 Room Air 12/08/21 08:00 98 Room Air 12/08/21 03:55 36.1 75 19 157/72 (100) 98 Room Air 12/08/21 00:05 36.8 84 18 137/76 (96) 96 Room Air 12/07/21 20:14 36.6 94 18 142/83 (102) 99 Room Air 12/07/21 20:06 Room Air 12/07/21 15:31 36.1 82 99 21 12/07/21 14:45 36.7 84 20 137/71 (93) Room Air 12/07/21 14:45 36.1 82 18 134/90 99 Room Air 12/07/21 11:11 36.1 87 20 137/91 (106) 97 Room Air I & O 12/08/21 07:00 Intake Total 770 ml Balance 770 ml Capillary Refill : General Appearance: No Apparent Distress, WD/WN, Obese Neck: Normal Inspection, Supple Respiratory: No Accessory Muscle Use, No Respiratory Distress Cardiovascular: Regular Rate, Rhythm, No Edema Gastrointestinal: normal bowel sounds, soft, tenderness (RLQ) Extremity: Normal Inspection, Normal Range of Motion Neurologic/Psychiatric: Alert, Oriented x3 Skin: Normal Color, Warm/Dry Results Lab Laboratory Tests 12/07/21 11:17: Urine Color YELLOW, Urine Clarity TURBID, Urine pH 6.0, Urine Specific [place] 1.020, Urine Protein NEGATIVE, Urine Glucose (UA) NEGATIVE, Urine Ketones NEGATIVE, Urine Nitrite NEGATIVE, Urine Bilirubin NEGATIVE, Urine Urobilinogen 0.2, Urine Leukocyte Esterase 1+H, Urine RBC (Auto) NEGATIVE, Urine RBC NONE, Urine WBC 5-10H, Urine Squamous Epithelial Cells 25-50H, Urine Crystals NONE, Urine Bacteria TRACE, Urine Casts NONE, Urine Mucus NEGATIVE, Urine Culture Indicated YES 12/07/21 11:32: White Blood Count 8.5, Red Blood Count 5.15H, Hemoglobin 12.0, Hematocrit 39, Mean Corpuscular Volume 76L, Mean Corpuscular Hemoglobin 23L, Mean Corpuscular Hemoglobin Concent 31L, Red Cell Distribution Width 18.6H, Platelet Count 288, Mean Platelet Volume 9.9, Immature Granulocyte % (Auto) 0, Neutrophils (%) (Auto) 76H, Lymphocytes (%) (Auto) 13, Monocytes (%) (Auto) 7, Eosinophils (%) (Auto) 3, Basophils (%) (Auto) 1, Neutrophils # (Auto) 6.5, Lymphocytes # (Auto) 1.1, Monocytes # (Auto) 0.6, Eosinophils # (Auto) 0.3, Basophils # (Auto) 0.0, Immature Granulocyte # (Auto) 0.0, Sodium Level 139, Potassium Level 4.3, Chloride Level 107, Carbon Dioxide Level 22, Anion Gap 10, Blood Urea Nitrogen 10, Creatinine 0.74, Estimat Glomerular Filtration Rate 105, BUN/Creatinine Ratio 14, Glucose Level 109H, Calcium Level 8.6, Corrected Calcium 8.8, Total Bilirubin 0.3, Aspartate Amino Transf (AST/SGOT) 23, Alanine Aminotransferase (ALT/SGPT) 39, Alkaline Phosphatase 112, Total Protein 7.0, Albumin 3.8 12/07/21 11:35: Influenza Type A (RT-PCR) Not Detected, Influenza Type B (RT-PCR) Not Detected, SARS-CoV-2 RNA (RT-PCR) DetectedH 12/08/21 05:50: White Blood Count 5.2, Red Blood Count 4.94, Hemoglobin 11.4L, Hematocrit 37, Mean Corpuscular Volume 75L, Mean Corpuscular Hemoglobin 23L, Mean Corpuscular Hemoglobin Concent 31L, Red Cell Distribution Width 18.6H, Platelet Count 271, Mean Platelet Volume 10.4, Immature Granulocyte % (Auto) 0, Neutrophils (%) (Auto) 60, Lymphocytes (%) (Auto) 25, Monocytes (%) (Auto) 8, Eosinophils (%) (Auto) 6, Basophils (%) (Auto) 1, Neutrophils # (Auto) 3.1, Lymphocytes # (Auto) 1.3, Monocytes # (Auto) 0.4, Eosinophils # (Auto) 0.3, Basophils # (Auto) 0.0, Immature Granulocyte # (Auto) 0.0, Sodium Level 139, Potassium Level 3.7, Chloride Level 106, Carbon Dioxide Level 24, Anion Gap 9, Blood Urea Nitrogen 6L , Creatinine 0.68, Estimat Glomerular Filtration Rate 114, BUN/Creatinine Ratio 9, Glucose Level 102, Calcium Level 8.4L Assessment/Plan Assessment/Plan Assess & Plan/Chief Complaint A 41-year-old female with uncomplicated acute appendicitis as well as intermittent symptomatic chronic cholecystitis, COVID positive VSS WBC 5.2 Tolerating clear liquid diet, will advance to low fat It was discussed with patient about the risks of surgery and potential risks of being COVID positive and under going general anesthesia We will proceed with medical management with antibiotic and pain medication and will DC home once she is less symptomatic and have her follow up to schedule her surgery as an outpatient. She verbalized understanding. DARRYN LINK APRN Dec 08, 2021 09:08
[2021-12-08] MEDS ORDERED: ACHD5005 PO (09:15)
[2021-12-08] MEDS ORDERED: METR-145 PO (09:15)
[2021-12-08] MEDS ORDERED: CIPR500T5 PO (09:15)
--- NOTE | 2021-12-08 09:16 | Discharge Inst-Surgical ---
D/C Lap Instructions-KIDO Reconcile Patient Problems Problems Reviewed?: Yes New, Converted, or Re-Newed RX: RX on Chart Follow Up Appt in 2 weeks Call our office at [phone] Activity as tolerated No driving while on pain medications Incentive Spirometry use every 2 hours while awake Low fat diet Symptoms to Report: Fever over 101 degree F, Nausea/Vomiting Bathing instructions: May shower If any problems/questions: Contact your physician or go to Emergency Room DARRYN LINK APRN Dec 08, 2021 09:16
[2021-12-08 11:14] VITALS: BP 133/67
[2021-12-08 11:15] VITALS: BP 133/67
== END 2021-12-08 11:50 | disposition home or self-care (01) ==
LOC: EDUNIT# 10:57 → ER 11:00 → 4TH 13:52
PROVIDERS: ADMIT Surgery; ATTEND Surgery
DX: K35.80 Unspecified acute appendicitis (principal); K81.1 Chronic cholecystitis; U07.1 COVID-19; G43.909 Migraine, unspecified, not intractable, without status migrainosus; J45.909 Unspecified asthma, uncomplicated; Z79.891 Long term (current) use of opiate analgesic; Z79.899 Other long term (current) drug therapy
CPT/HCPCS: 36415; 74177; 80048; 80053; 81000; 84703; 85025; 87088; 87636; 94760; G0378

== ENCOUNTER 2023-05-23 05:38 | Emergency (ER) | payer MEDICAID ==
[~2023-05-23] VITALS: Ht 165.1 cm; Wt 149.7 kg
[~2023-05-23 05:38] MED LIST changes: +ACHD5005 PO; +CIPR500T5 PO; +METR-145 PO
--- NOTE | 2023-05-23 06:00 | ED Abdominal Pain ---
General Chief Complaint: Abdominal/GI Problems Stated Complaint: VOMITING,DIARRHEA,SHARP PX IN STOMACH Source of Information: Patient Exam Limitations: No Limitations History of Present Illness Date Seen by Provider: May 23, 2023 Time Seen by Provider: 06:00 Initial Comments Patient is a 43-year-old female who presents to the emergency room by private vehicle chief complaint upper abdominal pain, nausea vomiting diarrhea onset at 10 PM last night. Patient states that she felt nauseated off and on all day yesterday. She was able to eat a little watermelon and Hebrew fries. Last oral intake was a couple of sips of water about 2 hours ago. She has had no prior abdominal surgeries. Denies any sick contacts. Works as a FINANCE VICE PRESIDENT. Denies dysuria urgency or frequency. No blood in her stool but she does endorse blood in her vomit. She has never had any endoscopy. She is a non-smoker. She does have a history of asthma. 7 prior pregnancies currently on her menstrual cycle, day 4. Denies fevers or chills. She does feel a little lightheaded when she gets up and moves around and this also worsens her pain. Her pain is improved by lying still. She has not taken anything for the pain or nausea. Timing/Duration: 4-6 Hours Severity/Quality: Moderate, Sharp Location: RUQ, LUQ Radiation: No Radiation Activities at Onset: Other (work) Associated Symptoms: Nausea/Vomiting, Weakness, Other (diarrhea) Allergies and Home Medications Allergies Coded Allergies: latex (Unverified Allergy, Unknown, 12/07/21) Uncoded Allergies: RASIN (Allergy, Unknown, 09/27/15) Patient Home Medication List Home Medication List Reviewed: Yes Ciprofloxacin HCl (Ciprofloxacin HCl) 500 Mg Tablet, 500 MG PO BID Prescribed by: DARRYN LIKN on 12/08/21 0915 Diclofenac Sodium (Diclofenac Sodium) 75 Mg Tablet.dr, 75 MG PO BID Prescribed by: ANGIE GALEANA on 06/26/20 0856 Dicyclomine HCl (Dicyclomine HCl) 20 Mg Tablet, 20 MG PO TID Prescribed by: ANGIE GALEANA on 06/26/20 0856 Hydrocodone/Acetaminophen (Hydrocodone-Acetamin 5-325 mg) 1 Each Tablet, 1 TAB PO Q4H PRN for PAIN-MODERATE (5-7) Prescribed by: DARRYN LINK on 12/08/21914 Metronidazole (Metronidazole) 500 Mg Tablet, 500 MG PO BID Prescribed by: DARRYN LIKN on 12/08/21914 Ondansetron (Ondansetron Odt) 4 Mg Tab.rapdis, 4 MG SL Q8H PRN for NAUSEA/VOMITING Prescribed by: MEEK EMERSON on 05/23/23 0721 Review of Systems Review of Systems Constitutional: see HPI, malaise EENTM: No Symptoms Reported Respiratory: No Symptoms Reported Cardiovascular: No Symptoms Reported Gastrointestinal: Abdominal Pain, Diarrhea, Nausea, Vomiting, Other (hematemesis) Genitourinary: No Symptoms Reported Musculoskeletal: no symptoms reported Skin: no symptoms reported Past Mvwnciz-Bardxg-Bkpavq Hx Patient Social History Tobacco Use?: No Substance use?: No Alcohol Use?: No Immunizations Up To Date Tetanus Booster (TDap): Unknown Influenza Vaccine Up-to-Date: No; Not Current Seasonal Allergies Seasonal Allergies: No Past Medical History Surgery/Hospitalization HX: asthma Surgeries: No Respiratory: Yes Asthma Cardiac: No Neurological: Yes (SEIZURES WITH FIRST KID, HAS PASSED OUT WITH HEADACHES/MIGRAINES) Reproductive Disorders: No Sexually Transmitted Disease: No HIV/AIDS: No Genitourinary: No Gastrointestinal: No Musculoskeletal: No Endocrine: No HEENT: No 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 oz. 111.488998me; 46.59 BMI Method: General Appearance: WD/WN, no apparent distress, obese HEENT: PERRL/EOMI Respiratory: lungs clear, normal breath sounds, no respiratory distress, no accessory muscle use Cardiovascular: regular rate, rhythm Gastrointestinal: soft, tenderness (mild tenderness RUQ, epidastrum and LUQ; no rebound or involuntary guarding; hypoactive BS) Extremities: normal range of motion, normal inspection Neurologic/Psychiatric: alert, normal mood/affect, oriented x 3, other (flat affect) Skin: normal color, warm/dry Progress/Results/Core Measures Results/Orders Lab Results Laboratory Tests Test 05/23/23 06:16 Range/Units White Blood Count 6.7 4.3-11.0 10^3/uL Red Blood Count 5.48 H 3.80-5.11 10^6/uL Hemoglobin 14.2 11.5-16.0 g/dL Hematocrit 44 35-52 % Mean Corpuscular Volume 80 80-99 fL Mean Corpuscular Hemoglobin 26 25-34 pg Mean Corpuscular Hemoglobin Concent 32 32-36 g/dL Red Cell Distribution Width 15.1 H 10.0-14.5 % Platelet Count 327 130-400 10^3/uL Mean Platelet Volume 9.8 9.0-12.2 fL Immature Granulocyte % (Auto) 0 % Neutrophils (%) (Auto) 72 42-75 % Lymphocytes (%) (Auto) 16 12-44 % Monocytes (%) (Auto) 7 0-12 % Eosinophils (%) (Auto) 5 0-10 % Basophils (%) (Auto) 0 0-10 % Neutrophils # (Auto) 4.8 1.8-7.8 10^3/uL Lymphocytes # (Auto) 1.1 1.0-4.0 10^3/uL Monocytes # (Auto) 0.4 0.0-1.0 10^3/uL Eosinophils # (Auto) 0.4 H 0.0-0.3 10^3/uL Basophils # (Auto) 0.0 0.0-0.1 10^3/uL Immature Granulocyte # (Auto) 0.0 0.0-0.1 10^3/uL Sodium Level 138 135-145 MMOL/L Potassium Level 4.2 3.6-5.0 MMOL/L Chloride Level 107 98-107 MMOL/L Carbon Dioxide Level 21 21-32 MMOL/L Anion Gap 10 5-14 MMOL/L Blood Urea Nitrogen 10 7-18 MG/DL Creatinine 0.85 0.60-1.30 MG/DL Estimat Glomerular Filtration Rate 88 BUN/Creatinine Ratio 12 Glucose Level 126 H 70-105 MG/DL Calcium Level 8.9 8.5-10.1 MG/DL Corrected Calcium 8.7 8.5-10.1 MG/DL Total Bilirubin 0.4 0.1-1.0 MG/DL Aspartate Amino Transf (AST/SGOT) 18 5-34 U/L Alanine Aminotransferase (ALT/SGPT) 25 0-55 U/L Alkaline Phosphatase 96 40-136 U/L Total Protein 7.7 6.4-8.2 GM/DL Albumin 4.2 3.2-4.5 GM/DL Lipase 13 8-78 U/L My Orders Orders - MEEK EMERSON MD Ed Iv/Invasive Line Start (05/23/23 06:08) Cbc With Automated Diff (05/23/23 06:08) Comprehensive Metabolic Panel (05/23/23 06:08) Lipase (05/23/23 06:08) Lactated Ringers (Lr 1000 Ml Iv Solution (05/23/23 06:15) Ondansetron Injection (Zofran Injectio (05/23/23 06:15) Dicyclomine Injection (Bentyl Injection) (05/23/23 06:08) Urine Bedside (05/23/23 06:08) Medications Given in ED Current Medications Medications Dose Ordered Sig/Abel Route Start Time Stop Time Status Last Admin Dose Admin Ondansetron HCl 8 mg ONCE ONCE IVP 05/23/23 06:15 05/23/23 06:16 DC 05/23/23 06:17 8 MG Vital Signs/I&O 05/23/23 05:50 Temp 37.3 Pulse 91 Resp 16 B/P (MAP) 138/96 (110) Pulse Ox 96 O2 Delivery Room Air Progress Progress Note : Time: 07:17 Progress Note Patient seen and evaluated by me. Evaluation today includes physical exam, CBC, Chem-12 and lipase. Pertinent physical exam findings well-developed well- nourished obese female in mild distress due to abdominal discomfort. Abdomen is soft diffusely tender in the upper quadrants. Hypoactive bowel sounds. Vital signs are stable. She is afebrile. Heart is regular, lungs are clear. Potential diagnosis based on history and physical exam acute gastroenteritis, acute cholecystitis, atypical appendicitis Labs independently reviewed and interpreted by me. Her CBC is normal, Chem-12 is normal, lipase is within normal. Patient is treated in the emergency department with 1 L of lactated Ringer's, 8 mg of IV Zofran and 20 mg of IM dicyclomine. She is reassessed at this time and states that she is feeling better. Vital signs remained stable. No deterioration in patient's condition during her ED stay. Abdominal exam is improved. Patient is comfortable with discharge home. We will send a prescription to [facility] for Zofran. I have delineated at home precautions to include clear liquid diet over the course of the morning and to slowly advance her diet as tolerated returning to more normal diet hopefully tomorrow. I have indicated to her that her symptoms may last for a couple of days. SHe has tolerated sips of clear liquids in the ED. She should return to the emergency department for fever, worsening pain. She verbalized understanding the plan of care. All questions are sought and answered. Patient is improved at discharge Departure Impression Primary Impression: Gastroenteritis Disposition: 01 HOME, SELF-CARE Condition: Improved Departure-Patient Inst. Decision time for Depature: 07:19 Referrals: GEOFFREY BARRERA APRN (PCP/Family) Primary Care Physician Patient Instructions: Viral gastroenteritis in adults Add. Discharge Instructions: Follow a clear liquid diet for most of the morning and afternoon. You can slowly advance your diet to more bland foods in the evening. Repeat the Zofran every 6-8 hours as needed for nausea. You can take [id number] extra strength Tylenol 2 tablets every 6 hours as needed for pain. If you develop fever, worsening symptoms please return to the emergency department for reevaluation. Please follow-up with your primary care doctor next week. Scripts Ondansetron (Ondansetron Odt) 4 Mg Tab.rapdis 4 MG SL Q8H PRN for NAUSEA/VOMITING, #12 TAB Prov: MEEK EMERSON MD 05/23/23 MEEK EMERSON MD May 23, 2023 06:00
[2023-05-23] MEDS ORDERED: DICYCLOMINE 10 MG/ML (BENTYL) 2 ML AMP IM STA (06:08)
[2023-05-23] MEDS ORDERED: LACTATED RINGERS 1,000 ML IV SCH (06:15)
[2023-05-23] MEDS ORDERED: ONDANSETRON 4 MG/2 ML (SDV) Z0FRAN IVP ONE (06:15)
[2023-05-23 06:32] LABS: BASOPHILS % (AUTO) 0 % (0-10); EOSINOPHILS # (AUTO) 0.4 10^3/uL (0.0-0.3); EOSINOPHILS % (AUTO) 5 % (0-10); HEMATOCRIT 44 % (35-52); HEMOGLOBIN 14.2 g/dL (11.5-16.0); LYMPHOCYTES # (AUTO) 1.1 10^3/uL (1.0-4.0); LYMPHOCYTES % (AUTO) 16 % (12-44); MEAN CORPUSCULAR HEMOGLOBIN 26 pg (25-34); MEAN CORPUSCULAR HGB CONC 32 g/dL (32-36); MEAN CORPUSCULAR VOLUME 80 fL (80-99); MEAN PLATELET VOLUME 9.8 fL (9.0-12.2); MONOCYTES # (AUTO) 0.4 10^3/uL (0.0-1.0); MONOCYTES % (AUTO) 7 % (0-12); NEUTROPHILS # (AUTO) 4.8 10^3/uL (1.8-7.8); NEUTROPHILS % (AUTO) 72 % (42-75); PLATELET COUNT 327 10^3/uL (130-400); WHITE BLOOD COUNT 6.7 10^3/uL (4.3-11.0)
[2023-05-23 06:44] LABS: ALBUMIN 4.2 GM/DL (3.2-4.5); POTASSIUM 4.2 MMOL/L (3.6-5.0)
[2023-05-23 06:45] LABS: CALCIUM 8.9 MG/DL (8.5-10.1)
[2023-05-23 06:47] LABS: TOTAL PROTEIN 7.7 GM/DL (6.4-8.2)
[2023-05-23 06:48] LABS: BILIRUBIN,TOTAL 0.4 MG/DL (0.1-1.0)
[2023-05-23 06:50] LABS: CREATININE SERUM 0.85 MG/DL (0.60-1.30)
[2023-05-23] MEDS ORDERED: ONDA4TAB11 SL (07:21)
[2023-05-23 07:32] VITALS: BP 149/92
== END 2023-05-23 07:32 | disposition home or self-care (01) ==
LOC: EDUNIT# 05:38 → ER 05:43
DX: K52.9 Noninfective gastroenteritis and colitis, unspecified (principal); E66.9 Obesity, unspecified; Z68.42 Body mass index [BMI] 45.0-49.9, adult; Z91.040 Latex allergy status; Z28.310 Unvaccinated for COVID-19
CPT/HCPCS: 36415; 80053; 83690; 84703; 85025